=== PATIENT | female | born 1955 | race Caucasian/White ===

== ENCOUNTER → 2021-04-25 | Outpatient (CLI) | payer MEDICARE ==
[~2021-04-25] MED LIST: ALBUTEROL0.63 MG/3 INH; BROVANA15 MCG/2 M INH; ENTRESTO PO; LASIX20 MG PO; LEVOTHYROXINE25 MCG PO; METOPROLOL TART25 MG PO; PREDNISONE 20 M20 MG PO; PREDNISONE20 MG PO; SINGULAIR10 MG PO; TAMIFLU75 MG PO; TYLENOL 325MG325 MG PO
== END ==
LOC: ECHO 10:45
DX: I42.0 Dilated cardiomyopathy (principal); I50.22 Chronic systolic (congestive) heart failure; R06.02 Shortness of breath; I08.3 Combined rheumatic disorders of mitral, aortic and tricuspid valves; I27.20 Pulmonary hypertension, unspecified
CPT/HCPCS: ECHO; 93306

== ENCOUNTER 2021-06-30 16:41 | Emergency (ER) | payer MEDICARE | END 2021-06-30 16:53 | disposition left against medical advice (07) | LOC: ER1 16:41 | DX: Z53.21 Procedure and treatment not carried out due to patient leaving prior to being seen by health care provider (principal) ==